=== PATIENT | male | born 1975 | race African-American/Black ===

== ENCOUNTER 2019-03-27 09:47 | Emergency (ER) | payer MEDICARE, MEDICAID ==
[2019-03-27] MEDS ORDERED: DIPHENHYDRAMINE HCL 50 MG CAPSULE PO ONE (10:31)
--- NOTE | 2019-03-27 10:38 | ER Document Report ---
HPI - HPI Time Seen by Provider: 03/27/19 10:10 Pain Level: 2 Context: Patient is a 43-year-old male who presents to the emergency department with a "rash" to bilateral lower extremities. The patient is autistic and his parents are at bedside to provide additional history. He was at his day care today and the personnel had noticed that he was developing a rash. Parents deny any fever. The rash appears to have blisters. Patient states that it does itch. Parents state that he has been sitting on the front porch with no sunscreen. Patient also has a past medical history of IBS, H. pylori, migraines, GERD, and autism. Is currently taking his normal medications. Parents deny any new detergents, lotions, or any other new items. - CONSTITUTIONAL Constitutional: DENIES: Fever, Chills - EENT EENT: DENIES: Sore Throat, Ear Pain, Nasal Drainage-Clear, Congestion, Eye problems - NEURO Neurology: DENIES: Headache, Weakness - CARDIOVASCULAR Cardiovascular: DENIES: Chest pain - RESPIRATORY Respiratory: DENIES: Trouble Breathing, Coughing - GASTROINTESTINAL Gastrointestinal: DENIES: Abdominal Pain - MUSCULOSKELETAL Musculoskeletal: DENIES: Extremity pain, Back Pain, Neck Pain, Swelling - DERM Skin Problems: Blister - Multiple to bilateral lower extremities Past Medical History - Social History Smoking Status: Never Smoker Frequency of alcohol use: None Drug Abuse: None Family History: DM, Hypertension Patient has suicidal ideation: No Patient has homicidal ideation: No - Past Medical History Cardiac Medical History: Reports: Hx Hypertension Neurological Medical History: Reports: Hx Migraine Renal/ Medical History: Denies: Hx End Stage Renal Disease, Hx Peritoneal Dialysis, Hx Renal Insufficiency GI Medical History: Reports: Hx Irritable Bowel, Hx Ulcer Vertical Provider Document - CONSTITUTIONAL Agree With Documented VS: Yes Exam Limitations: No Limitations, Physical Impairment - INFECTION CONTROL TRAVEL OUTSIDE OF THE [place] IN LAST 30 DAYS: No - HEENT HEENT: Atraumatic, Normocephalic, PERRLA - NECK Neck: Normal Inspection - RESPIRATORY Respiratory: Breath Sounds Normal, No Respiratory Distress - CARDIOVASCULAR Cardiovascular: Regular Rate, Regular Rhythm, No Murmur Pulses: Normal: Radial - GI/ABDOMEN Gastrointestinal: Abdomen Soft - MUSCULOSKELETAL/EXTREMETIES Musculoskeletal/Extremeties: FROM, Non-Tender - NEURO Level of Consciousness: Awake, Alert, Appropriate Motor/Sensory: No Motor Deficit, No Sensory Deficit - DERM Integumentary: Warm, Dry, Rash - Blisters noted to bilateral lower extremities, consistent with sunburn Course - Re-evaluation Re-evalutation: 03/27/19 10:40 Patient's physical exam seems to be consistent with a possible sunburn to his bilateral lower extremities. He does not have any fever. At this time he will receive 50 mg of Benadryl and parents will give him 50 mg of Benadryl every 6 hours. Parents are in agreement with this plan. He will follow-up with his primary care provider. Verbal discharge instructions were given to the patient. They verbalized understanding. They are stable for discharge. - Vital Signs Vital signs: Temp Pulse Resp BP Pulse Ox 97.4 F 82 18 163/110 H 98 03/27/19 09:57 03/27/19 09:57 03/27/19 09:57 03/27/19 09:57 03/27/19 09:57 Discharge - Discharge Clinical Impression: Rash Condition: Stable Disposition: HOME, SELF-CARE Additional Instructions: Your son was seen today in the emergency department for a rash. Please give him Benadryl 50 mg every 6 hours for the itchiness. His rash could possibly be due to a sunburn. Apply after sun lotion to his lower legs. Please apply sunscreen when he is out in the sun. Please follow-up with his primary care provider in regards to this visit. Referrals: SASHA CUENCA MD [Primary Care Provider] - Follow up in 3-5 days
[2019-03-27 10:58] VITALS: BP 155/95
== END 2019-03-27 10:57 | disposition home or self-care (01) ==
LOC: ER 09:47
DX: R21 Rash and other nonspecific skin eruption (principal); I10 Essential (primary) hypertension
CPT/HCPCS: 99282; A9270